=== PATIENT | male | born 1940 | race Caucasian/White ===

== ENCOUNTER 2016-09-10 18:13 | Inpatient (IN) | payer OTHER ==
[2016-09-10] MEDS ORDERED: NS 1,000 ML IV ONE (18:17)
[2016-09-10] MEDS ORDERED: ONDANSETRON 4 MG/2 ML VIAL IVP ONE (18:18)
[2016-09-10] MEDS ORDERED: ONDANSETRON 4 MG/2 ML VIAL ONE (18:18)
--- NOTE | 2016-09-10 18:22 | EDPHY ---
H & P HPI/ROS: HPI CHIEF COMPLAINT: Chest pain, ST elevation ND by EMS HISTORY OF PRESENT ILLNESS: this patient is 75-year-old male, presents emergency room as a STEMI activation in the field by EMS. He presents emergency room with chest pressure, and he has an obvious ST elevation ND on his EKG with acute ST elevation to 3 AVF with reciprocal changes in V1, V2, aVL. this patient tells me that he was doing cardio at the gym a pretty aggressive aerobic exercise class and developed chest pain. describes a dull ache across his precordium. It is currently 7/10. In route by EMS he was given 100 mcg IV fentanyl, 3 doses of nitroglycerin however this did not relieve his pain. Upon arrival here to the emergency room is hemodynamically stable no acute distress complaining of 7/10 chest pressure. Pre-hospital EKG shows an inferior ST elevation ND, EKG in the emergency room indicates a ST elevation ND 1814: the cardiac alert was paged out prior to arrival, catheterization lab is activated, Cardiology is in route for ST elevation ND. Past Medical History: coronary artery disease with 1 stent Past Surgical History: PTCA with 1 stent he believes to his LAD Social History: denies daily use drugs alcohol tobacco products Family History: noncontributory ROS REVIEW OF SYSTEMS: A comprehensive 10 point review of systems is otherwise negative aside from elements mentioned in the history of present illness. Exam Constitutional no acute distress, hemodynamically stable, triage nursing summary reviewed, vital signs reviewed, awake/alert. Eyes normal conjunctivae and sclera, EOMI, PERRLA. HENT normal inspection, atraumatic, moist mucus membranes, no epistaxis, neck supple/ no meningismus, no raccoon eyes. Respiratory clear to auscultation bilaterally, normal breath sounds, no respiratory distress, no wheezing. Cardiovascular rate normal, regular rhythm, no murmur, no edema, distal pulses normal. Gastrointestinal soft, non-tender, no rebound, no guarding, normal bowel sounds, no distension, no pulsatile mass. Genitourinary no CVA tenderness. Musculoskeletal no midline vertebral tenderness, full range of motion, no calf swelling, no tenderness of extremities, no meningismus, good pulses, neurovascularly intact. Skin pink, warm, & dry, no rash, skin atraumatic. Neurologic awake, alert and oriented x 3, AAOx3, moves all 4 extremities equally, motor intact, sensory intact, CN II-XII intact, normal cerebellar, normal vision, normal speech. Psychiatric normal mood/affect. Heme/Lymph/Immune no lymphadenopathy. Differential Diagnosis: acute ND, acute coronary syndrome, ST-elevation ND, aortic dissection Medical Decision Making: this patient will be prepped for cardiac catheterization lab. His EKG does indicate an ST elevation ND. Patient had 2 large-bore IVs established, he be given IV morphine for pain control your he received full-dose aspirin, IV fentanyl, and 3 rounds of nitroglycerin EN route which made no improvement with his pain. Re-evaluation: EKG interpretation by me on record in Known system. Impression Time of EKG 18 18 this is sinus rhythm, this shows an obvious ST elevation ND with significant ST elevation inferior leads lead 2, 3, AVF, reciprocal changes with ST depression significantly in aVL, V1, V2. Critical Care: Total Critical Care Time Spent Managing this Patient: 40 Minutes. This time was spent Exclusively with this patient. This Care was exclusive of procedures. The Organ System/life at risk was cardiac This Patient was in Critical Condition because ST elevation ND ED x-ray chest one view: negative for acute cardiopulmonary disease. 1836: Dr. Bennett Harper at bedside evaluating the patient plan for cardiac catheterization. 1836: Re-evaluation at this time patient having ongoing chest pain, blood pressure stable, he is hemodynamically stable and agrees for plan to cardiac catheterization. INR pending for Coumadin. Source: Patient, EMS - Medical/Surgical History Hx Asthma: No Hx Chronic Respiratory Disease: No Hx Diabetes: No Hx Cardiac Disease: No Hx Renal Disease: No Hx Cirrhosis: No Hx Alcoholism: No Hx HIV/AIDS: No Hx Splenectomy or Spleen Trauma: No Other PMH: DENIES - Social History Smoking Status: Never smoked Constitutional: Initial Vital Signs O2 Sat (%) 98 09/10/16 18:13 O2 (L/minute) 2 Allergies/Adverse Reactions: No Known Allergies Allergy (Unverified 10/20/14 15:15) Home Medications: Medication Instructions Recorded Aspirin EC [Aspirin EC 81 mg (*)] 81 mg PO DAILY 09/10/16 Atorvastatin Calcium [Lipitor 40 40 mg PO DAILY 09/10/16 mg (*)] Brinzolamide/Brimonidine Tart 1 drop EACHEYE BID 09/10/16 [Simbrinza 1%-0.2% Eye Drops] Metoprolol Succinate Xr [Toprol Xl 12.5 mg PO DAILY 09/10/16 25 mg (*)] Warfarin Sodium [Coumadin 2.5MG 2.5 mg PO MWF 09/10/16 (*)] Warfarin Sodium [Coumadin 5MG (*)] 5 mg PO SUTUTHSA 09/10/16 Medical Decision Making - Data Points Laboratory Results: Laboratory Results 09/10/16 18:20 09/10/16 18:20 Medications Given: Discontinued Medications Sodium Chloride (Ns) 1,000 mls @ 0 mls/hr IV ONCE ONE PRN Reason: As Directed Stop: 09/10/16 18:18 Last Admin: 09/10/16 18:31 Dose: 1,000 mls Dextrose/Sodium Chloride (D5w 1/2 Ns) 1,000 mls @ 125 mls/hr IV CONT ANH Stop: 09/12/16 03:44 Last Admin: 09/10/16 21:13 Dose: 1,000 mls Morphine Sulfate (Morphine) 4 mg IVP EDNOW ONE Stop: 09/10/16 18:18 Last Admin: 09/10/16 18:30 Dose: 4 mg Morphine Sulfate (Morphine) 4 mg IVP Q1HR ONE Stop: 09/10/16 18:33 Last Admin: 09/10/16 18:33 Dose: 4 mg Nitroglycerin (Nitrostat) 0.4 mg SL EDNOW ONE Stop: 09/10/16 18:33 Last Admin: 09/10/16 18:33 Dose: 0.4 mg Ondansetron HCl (Zofran) 4 mg IVP EDNOW ONE Stop: 09/10/16 18:19 Last Admin: 09/10/16 18:31 Dose: 4 mg Prasugrel (Effient) 60 mg PO ONCE ONE Stop: 09/10/16 19:32 Last Admin: 09/10/16 21:36 Dose: Not Given Rosuvastatin Calcium (Crestor) 40 mg PO DAILY ANH Stop: 03/09/17 19:59 Last Admin: 09/10/16 21:40 Dose: 40 mg Departure - Departure Disposition: To OP Cath/Surgery Clinical Impression: ST elevation (STEMI) myocardial infarction Qualifiers: Involved coronary artery: unspecified coronary artery Qualifier Code: (I21.3) ST elevation (STEMI) myocardial infarction of unspecified site Condition: Critical
[2016-09-10] MEDS ORDERED: NITROGLYCERIN 0.4 MG BTL SL ONE ×2 (18:24→18:32)
[2016-09-10 18:29] LABS: % IMMATURE GRANULYOCYTES 0.3 % (0.0-1.1); ABSOLUTE IMMATURE GRANULOCYTES 0.03 10^3/uL (0.00-0.10); ADD DIFF? NO; ADD MORPH? NO; ADD SCAN? NO; ATYPICAL LYMPHOCYTE FLAG 30 (0-99); FRAGMENT RBC FLAG 0 (0-99); HEMOGLOBIN 15.9 g/dL (13.7-17.5); LEFT SHIFT FLG 0 (0-99); LIPEMIA HEMOLYSIS FLAG 90 (0-99); MEAN CELL HEMOGLOBIN 31.9 pg (27.9-34.1); MEAN CELL HEMOGLOBIN CONCENTR. 34.6 g/dL (32.4-36.7); MEAN CELL VOLUME 92.2 fL (81.5-99.8); MEAN PLATELET VOLUME 10.2 fL (8.7-11.7); PLATELET CLUMPS FLAG 0 (0-99); PLATELET COUNT 225 10^3/uL (150-400); RED BLOOD CELL COUNT 4.99 10^6/uL (4.40-6.38); RED CELL DISTRIBUTION WIDTH 13.2 % (11.5-15.2)
--- NOTE | 2016-09-10 18:29 | CPEKG ---
Heart Rate: 110 RR Interval: 545 P-R Interval: 116 QRSD Interval: 116 QT Interval: 416 QTC Interval: 564 P [place]: 55 QRS [place]: -41 T Wave [place]: 105 EKG Severity - ABNORMAL ECG - EKG Impression: SINUS TACHYCARDIA EKG Impression: RUN OF VENTRICULAR PREMATURE COMPLEXES EKG Impression: ABERRANT COMPLEX, POSSIBLY SUPRAVENTRICULAR EKG Impression: PROBABLE LEFT ATRIAL ABNORMALITY EKG Impression: NONSPECIFIC IVCD WITH LAD EKG Impression: ST ELEVATION, PROBABLE INFERIOR INJURY Electronically Signed By: Devonte Farrell 10-Sep-2016 20:16:23
[2016-09-10] MEDS ORDERED: HEPARIN 10,000 UNIT/10 ML MDV ONE (18:33)
[2016-09-10] MEDS ORDERED: LIDOCAINE 1% 30 ML SDV ONE (18:33)
[2016-09-10] MEDS ORDERED: fentaNYL 100 MCG/2 ML INJ ONE (18:33)
[2016-09-10] MEDS ORDERED: VERAPAMIL 5 MG/2 ML VIAL ONE (18:33)
[2016-09-10] MEDS ORDERED: MIDAZOLAM 2 MG/2 ML VIAL ONE (18:33)
--- NOTE | 2016-09-10 18:33 | DX ---
Portal AP Upright Chest, 6:22 p.m. Clinical History: 75-year-old male with chest pain and shortness of breath. Comparison Study: Chest, dated 10/20/14. Findings: Telemetry monitoring lead lines and oxygen tubing are present. The cardiac silhouette size is at the upper limits of normal (given the portable AP technique). There is no focal infiltrate, ple ural effusion, peripheral interstitial edema, or pneumothorax. There is some mild osseous hypertrophy at the first costochondral junctions. There some degenerative features of the spine. Impression: No acute abnormality.
[2016-09-10] MEDS ORDERED: IOPAMIDOL (ISOVUE 370) 100 ML BTL IV ONE ×2 (18:34→19:05)
[2016-09-10] MEDS ORDERED: ATROPINE SULFATE 1 MG/10 ML SYR ONE (18:42)
[2016-09-10 18:44] LABS: APTT 30.7 SEC (23.0-38.0); INR 2.22 (0.83-1.16); PROTIME(PATIENT) 24.8 SEC (12.0-15.0)
[2016-09-10] MEDS ORDERED: EPINEPHrine 1 MG/10 ML SYR IVP ONE (18:44)
[2016-09-10 18:50] LABS: ALANINE AMINOTRANSFERASE 70 IU/L (21-72); ALBUMIN 4.2 g/dL (3.5-5.0); ALKALINE PHOSPHATASE 108 IU/L (38-126); ANION GAP 17 mEq/L (8-16); ASPARTATE AMINOTRANSFERASE 76 IU/L (17-59); BILIRUBIN,TOTAL 1.4 mg/dL (0.1-1.4); BILIRUBIN-CONJUGATED 0.4 mg/dL (0.0-0.5); CARBON DIOXIDE 16 mEq/l (22-31); CHLORIDE 107 mEq/L (97-110); CREATININE 1.3 mg/dL (0.7-1.3); GLOMERULAR FILTRATION RATE 54; GLUCOSE 135 mg/dL (70-100); SODIUM 140 mEq/L (134-144); SPECIMEN HEMOLYSIS 122; TOTAL PROTEIN 7.6 g/dL (6.3-8.2)
[2016-09-10] MEDS ORDERED: PRASUGREL HCL 10 MG TAB ONE (18:55)
[2016-09-10 19:02] LABS: CK-MB INTERPRETATION NEGATIVE (NEGATIVE); CREATINE KINASE-MB FRACTION 2.81 ng/mL (0-3.19); TROPONIN I 0.013 ng/mL (0-0.034)
[2016-09-10] MEDS ORDERED: NITROGLYCERIN 1,500 MCG/15 ML VIAL MISC ONE (19:14)
[2016-09-10] MEDS ORDERED: ONDANSETRON 4 MG/2 ML VIAL IVP PRN (19:31)
[2016-09-10] MEDS ORDERED: HYDROCODONE/APAP 5/325 TAB PO PRN (19:31)
[2016-09-10] MEDS ORDERED: OXYCODONE/APAP 5/325 TAB PO PRN (19:31)
[2016-09-10] MEDS ORDERED: NITROGLYCERIN 0.4 MG BTL SL PRN (19:31)
[2016-09-10] MEDS ORDERED: TEMAZEPAM 15 MG CAP PO PRN (19:31)
[2016-09-10] MEDS ORDERED: ATROPINE SULFATE 1 MG/10 ML SYR IVP PRN (19:31)
[2016-09-10] MEDS ORDERED: LORazepam 2 MG/ML INJ IVP PRN (19:31)
[2016-09-10] MEDS ORDERED: PRASUGREL HCL 10 MG TAB PO ONE (19:31)
[2016-09-10] MEDS ORDERED: D5W 1/2 NS 1,000 ML IV SCH (19:45)
[2016-09-10] MEDS ORDERED: ROSUVASTATIN CALCIUM 40 MG TAB PO SCH (20:00)
--- NOTE | 2016-09-10 20:28 | GHP ---
[f rep st] HISTORY AND PHYSICAL DATE OF ADMISSION: 09/10/2016 Referring Physician: Kade Dobson MD INDICATION: Acute inferior wall myocardial infarction, ST-segment elevation. HISTORY OF PRESENT ILLNESS: The patient is 75 years old. No old records are available. He states h e had a myocardial infarction and was treated at [facility] in August of 2015. He bel ieves it was to the front wall artery of his heart. He received what he believes was a drug-eluting stent. He was on dual anti-platelet therapy until the middle of August when this was discontinued. He has remained on aspirin 81 mg as well as warfarin which he takes for a long history of paroxysma l atrial fibrillation. He has been feeling well and was performing high-level step aerobics class this evening when he had s udden onset of substernal chest pain. 911 was called, and he was brought to the emergency department where he had inferior wall ST-segment elevation with evidence for posterior extension. Cardiac aler t was called. The patient was given fentanyl and nitroglycerin without reduction in his severe subst ernal chest pain. CARDIAC RISK FACTORS: Positive for family history in his father in his 70s. He has siblings without known coronary disease. There is no history of cigarette smoking, diabetes, or hypertension. He do es not believe that he ever had hyperlipidemia but has been on statin therapy since his myocardial in [facility]. PAST MEDICAL AND PAST SURGICAL HISTORIES: Otherwise completely unremarkable. There is a history of atrial fibrillation for approximately 15 years. Patient does not believe he has this very often and cannot remember the last time he had atrial fibrillation. CURRENT MEDICATIONS: Aspirin, low strength; warfarin, unknown dose; Lipitor, unknown dose; metoprolo l, unknown dose. ALLERGIES: None known. 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 He has a daughter and son who live locally. Alcohol and drug use are denied. REVIEW OF SYSTEMS: Otherwise completely unremarkable except for shortness of breath associated with the chest discomfort. There has been no lightheadedness, palpitations, dizziness, syncope, or near-s yncope. No fever chills, headache, cough. PHYSICAL EXAM: GENERAL: The patient is in mild distress, complaining of 7/10 substernal chest pain. VITAL SIGNS: Blood pressure of 100/70, pulse of 85 and regular. NECK: Jugular venous pressure do es not appear elevated. LUNGS: Clear. CARDIAC: No murmur, rub, or gallop. ABDOMEN: Without mass es, tenderness, or bruits. EXTREMITIES: Femoral distal and radial pulses are normal with a normal A llen test. LABORATORY STUDIES: Show a normal CBC. PT/INR of 2.2. A CPK-MB that is negative. A troponin that is negative. A creatinine that is 1.3. DIAGNOSTIC STUDIES: Chest x-ray is unremarkable. EKG shows sinus rhythm at a rate of 55 beats per minute with marked inferior ST-segment elevation wit h ST depression in leads 1, aVL, V1 and V2, and V6. This is consistent with inferior posterior wall injury. IMPRESSION: 1. Acute inferior posterior wall [id number] myocardial infarction. 2. Previous stent in the left anterior descending for what appears to have been an anterior myocardi al infarction by patient history. This was approximately 13 months ago with recent discontinuation o f dual anti-platelet therapy. 3. History of paroxysmal atrial fibrillation, on warfarin. 4. Probable hyperlipidemia, on Lipitor, dose unknown. 5. Family history of coronary disease. PLAN: Emergent cardiac catheterization. Informed consent was obtained. This will be performed via the radial approach given elevated INR and warfarin usage. /[id number]/MODL
--- NOTE | 2016-09-10 20:48 | CPIP ---
[f rep st] INVASIVE CARDIAC PROCEDURE DATE OF PROCEDURE: 09/10/2016 INDICATIONS: 75-year-old man with acute inferior-posterior wall myocardial infarction. PROCEDURES PERFORMED: 1. Left heart catheterization with left ventricular and selective coronary angiography via the right radial approach. 2. Balloon angioplasty and intracoronary stent placement x2 in proximal and mid dominant right coron lyly artery. DESCRIPTION: Informed consent was obtained. Risks, benefits and alternatives were discussed in deta il with the patient in the emergency department. He is on warfarin for history of paroxysmal atrial fibrillation with an INR greater than 2. Decision was made to use radial approach. John test was n ormal. After informed consent was obtained, patient was brought emergently to the cardiac catheteriz ation laboratory, where the right wrist was sterilely prepped and draped. 2% lidocaine utilized for local anesthetic. 6-Portuguese Slender sheath placed, right radial artery, utilizing micropuncture techn ique. Intraarterial verapamil was administered. Intravenous heparin was administered. All catheter s were exchanged over an exchange J wire. A J Glidewire was required to traverse the tortuous brachi ocephalic. Diagnostic coronary angiography was performed with 6-Portuguese Herson right 4 and Herson l eft 3.5 catheters. At the end of the procedure, a 6-Portuguese pigtail was utilized for left heart darin terization and left ventricular angiography. The obvious culprit lesion was proximal to mid total occlusion of the dominant right coronary. Patie nt received Effient 60 mg orally at the beginning of the procedure. Heparin had already been adminis tered, and the ACT was greater than 400 seconds. A 6-Portuguese AL1 short-tipped guide catheter was plac ed. Prowater J wire was placed into the right coronary. Balloon backup support with a 3.25 x 15 mm Emerge balloon was required to cross the heavily calcified lesion. Wire was placed out distally. Ba lloon inflations were performed up to 11 atmospheres, restoring normal antegrade flow. Patient did h ave significant junctional bradycardia and hypotension, requiring atropine and fluid. This led to re stored normal antegrade flow and reduction in ST-segment elevation. A 3.5 x 38 mm Synergy stent was then chosen to cover the mid stenosis and carefully positioned and deployed to 18 atmospheres. There was excellent result in the stented segment. There was still an eccentric proximal lesion near the ostium, leading to catheter damping. A 4.0 x 16 mm Synergy stent was carefully positioned in this ar ea and deployed to 16 atmospheres. Intracoronary nitroglycerin and verapamil were administered, and final orthogonal angiography was performed. Pigtail catheter was then placed for left ventricular an giogram and left heart catheterization. Catheter was removed over a wire. Sheath was removed, and T R Band was placed. FINDINGS: HEMODYNAMICS: Aortic pressure at the beginning of the case, 94/56; venous, 72. Left ventricular pre ssure 85/26, end-diastolic. There was minimal pullback gradient across the aortic valve. CORONARY ANGIOGRAPHY: The right coronary artery is a large, dominant vessel with a moderately large posterior descending and a large posterolateral branch. The vessel is heavily calcified. There is a proximal eccentric 60% to 70% stenosis, followed by proximal to mid total occlusion. Following prox imal and mid stenting, there is restored normal antegrade flow, no residual stenoses within the stent . There is evidence of ostial stenosis of the PDA of at least 70% and then distal right coronary meeta nosis beyond the PDA origin of 60%. This did not respond to intracoronary vasodilators. Left Main: A moderate-sized, bifurcating vessel with mild plaquing. Left Anterior Descending: A moderately large vessel continuing to the apex. There is the appearance of a proximal stent that is widely patent. The vessel is moderately to heavily calcified. There is a small first diagonal branch, a small to moderate second diagonal branch, and a moderate bifurcatin g third diagonal branch. The mid LAD after the third diagonal branch has an area of significant syst olic compression and at least 50% to 60% stenosis. There are, otherwise, luminal irregularities in t he LAD and its branches. Circumflex: Nondominant vessel with a small high lateral branch, moderately large first marginal bra nch, moderate bifurcating second marginal branch, and luminal irregularities with no significant sten oses. LV Ventricle: Normal in size and shape. The left ventricle has focal posterior, inferior and basal hypokinesis which is moderate to severe, with the remainder of the ventricle being normal to hyperdyn amic with an ejection fraction of greater than 60%. There are no filling defects or significant mitr al regurgitation. OVERALL IMPRESSION: 1. Acute inferior-posterior wall myocardial infarction due to proximal and mid occlusion of dominant right coronary, successfully treated with 2 drug-eluting stents with excellent result. 2. Patent LAD stent. 3. Residual PDA and distal right coronary moderate to severe disease that is not critical. 4. Moderate mid LAD disease. 5. Posterior-inferior hypokinesis with normal ejection fraction. 6. Systemic hypotension. 7. Reperfusion arrhythmias, which have resolved. PLAN: 1. ICU admission. 2. Dual antiplatelet therapy. 3. Hold warfarin for the time being in an attempt to obtain old records regarding history of atrial fibrillation. 4. High-dose statin therapy. 5. Will resume beta-nadia when tolerated from a blood pressure standpoint. Copy requested to: Dr. Crook /[id number]/MODL
--- NOTE | 2016-09-10 20:49 | CPEKG ---
Heart Rate: 72 RR Interval: 833 P-R Interval: 196 QRSD Interval: 98 QT Interval: 420 QTC Interval: 460 P [place]: 54 QRS [place]: -58 T Wave [place]: 12 EKG Severity - ABNORMAL ECG - EKG Impression: SINUS RHYTHM EKG Impression: LEFT ANTERIOR FASCICULAR BLOCK EKG Impression: BORDERLINE R WAVE PROGRESSION, ANTERIOR LEADS EKG Impression: BORDERLINE T WAVE ABNORMALITIES Electronically Signed By: Hans Russo 10-Sep-2016 21:17:16
[2016-09-10] MEDS: FAMOTIDINE 20 MG TAB PO SCH (21:40)
[2016-09-10] MEDS: METOPROLOL TARTRATE 25 MG TAB PO SCH (21:40)
[2016-09-10 21:52] LABS: CK-MB INTERPRETATION NEGATIVE (NEGATIVE); TROPONIN I 0.955 ng/mL (0-0.034)
[2016-09-10 21:54] LABS: CREATINE KINASE-MB FRACTION 7.13 ng/mL (0-3.19)
[2016-09-11 05:21] LABS: % IMMATURE GRANULYOCYTES 0.5 % (0.0-1.1); ABSOLUTE IMMATURE GRANULOCYTES 0.03 10^3/uL (0.00-0.10); ADD DIFF? NO; ADD MORPH? NO; ADD SCAN? NO; ATYPICAL LYMPHOCYTE FLAG 20 (0-99); FRAGMENT RBC FLAG 0 (0-99); HEMATOCRIT 39.2 % (40.0-51.0); HEMOGLOBIN 13.3 g/dL (13.7-17.5); LEFT SHIFT FLG 0 (0-99); LIPEMIA HEMOLYSIS FLAG 90 (0-99); MEAN CELL HEMOGLOBIN 32.4 pg (27.9-34.1); MEAN CELL HEMOGLOBIN CONCENTR. 33.9 g/dL (32.4-36.7); MEAN CELL VOLUME 95.6 fL (81.5-99.8); MEAN PLATELET VOLUME 10.7 fL (8.7-11.7); PLATELET CLUMPS FLAG 10 (0-99); PLATELET COUNT 172 10^3/uL (150-400); RED CELL DISTRIBUTION WIDTH 13.4 % (11.5-15.2)
[2016-09-11 05:36] LABS: INR 2.46 (0.83-1.16); PROTIME(PATIENT) 26.9 SEC (12.0-15.0)
[2016-09-11 05:37] LABS: ALANINE AMINOTRANSFERASE 60 IU/L (21-72); ALBUMIN 2.7 g/dL (3.5-5.0); ALKALINE PHOSPHATASE 64 IU/L (38-126); ANION GAP 8 mEq/L (8-16); ASPARTATE AMINOTRANSFERASE 60 IU/L (17-59); BILIRUBIN,TOTAL 0.8 mg/dL (0.1-1.4); CALCIUM 7.7 mg/dL (8.5-10.4); CARBON DIOXIDE 20 mEq/l (22-31); CHLORIDE 111 mEq/L (97-110); CHOLESTEROL 88 mg/dL (140-220); CHOLESTEROL/HDL RATIO 1.69 RATIO (1.00-4.97); CREATININE 1.1 mg/dL (0.7-1.3); GLOMERULAR FILTRATION RATE > 60; GLUCOSE 98 mg/dL (70-100); HIGH DENSITY LIPOPROTEIN 52 mg/dL (40-65); LACTATE DEHYDROGENASE 591 IU/L (313-618); LDL/HDL RATIO 0.44 RATIO (1.00-3.64); LOW DENSITY LIPOPROTEIN 23 mg/dL (80-100); MAGNESIUM 2.1 mg/dL (1.6-2.3); NON-HIGH DENSITY LIPOPROTEIN 36 mg/dL (90-129); SODIUM 139 mEq/L (134-144); TOTAL PROTEIN 5.4 g/dL (6.3-8.2); TRIGLYCERIDE 66 mg/dL (40-150); VERY LOW DENSITY LIPOPROTEINS 13 mg/dL (8-25)
[2016-09-11 05:55] LABS: CK-MB INTERPRETATION POSITIVE (NEGATIVE)
[2016-09-11] MEDS: METOPROLOL TARTRATE 25 MG TAB PO SCH ×2 (08:28→21:07)
[2016-09-11] MEDS: PRASUGREL HCL 10 MG TAB PO SCH (08:38)
[2016-09-11] MEDS: ASPIRIN EC 325 MG TAB PO SCH (08:38)
[2016-09-11] MEDS: FAMOTIDINE 20 MG TAB PO SCH ×2 (08:38→21:07)
--- NOTE | 2016-09-11 09:02 | CPEKG ---
Heart Rate: 54 RR Interval: 1111 P-R Interval: 192 QRSD Interval: 116 QT Interval: 444 QTC Interval: 421 P [place]: 50 QRS [place]: -52 T Wave [place]: -55 EKG Severity - ABNORMAL ECG - EKG Impression: SINUS RHYTHM EKG Impression: LEFT ANTERIOR FASCICULAR BLOCK Electronically Signed By: Hans Russo 11-Sep-2016 09:11:07
[2016-09-11 12:46] LABS: CK-MB INTERPRETATION NEGATIVE (NEGATIVE)
[2016-09-11 15:34] VITALS: TEMP 98.4
--- NOTE | 2016-09-11 16:12 | SOAPPROG ---
[facility] Progress Note Assessment/Plan: Assessment: 1. Status post inferior wall myocardial infarction treated with 2 drug-eluting stents to the dominant right coronary with excellent result. Relatively low CPK and troponin peak. No recurrent chest discomfort or shortness of breath. No significant arrhythmias although sinus bradycardia and sinus arrhythmia have been present. Mild asymptomatic hypotension with some orthostatic component. Echocardiography with normal left ventricular and right ventricular function and no significant valvular abnormalities. 2. History of previous anterior wall myocardial infarction with LAD stent August 2015. Stent widely patent. No significant segmental wall motion abnormality in the anterior wall by either echocardiogram or left ventricular angiogram. 3. Past paroxysmal atrial fibrillation controlled with propafenone discontinue August 2015. Patient had been on warfarin since then. Warfarin currently on hold. Patient in sinus rhythm. I have placed a call to the patient's primary brickmason helper Dr. Garcia. She has yet to call me back. Patient may do better on dual anti-platelet therapy and implantable loop recorder. 4. Cardiac risk factors: No history of hypertension, diabetes or cigarette smoking. Family history only at older age in father. No history of hyperlipidemia. Current LDL cholesterol less than 30 on moderate dose statin. Patient has been placed on Crestor in this hospital stay. Will obtain an advanced lipid testing and C reactive protein. Overall patient is doing very well with no complaints. No recurrent chest discomfort. Walking without any symptoms or concerns. Right radial access site healing well without complication. Excellent hand perfusion. Plan: 1. PCU status 2. Advanced serum lipid testing 3. Consider implantable loop recorder and holding anticoagulation 4. Plavix generic testing is pending. Patient will remain on aspirin 81 mg and Effient 10 mg daily until results of Plavix genetic testing 5. Likely discharge in the morning. 09/11/16 16:12 09/11/16 16:12 Objective: Vital Signs Temp Pulse Resp BP Pulse Ox 98.4 F 64 17 97/59 L 97 09/11/16 15:31 09/11/16 15:31 09/11/16 15:31 09/11/16 15:31 09/11/16 15:31 Laboratory Results 09/11/16 05:05 09/11/16 05:05 09/10/16 09/11/16 09/12/16 05:59 05:59 05:59 Intake Total 2000 300 Output Total 650 800 Balance 1350 -500 PT 26.9 SEC (12.0-15.0) H 09/11/16 05:05 INR 2.46 (0.83-1.16) H 09/11/16 05:05 ICD10 Worksheet Patient Problems: Problems Problem Status Diagnosed Chronic Disease [facility]/Transitional Care Acute ST elevation (STEMI) myocardial infarction Acute
[2016-09-11] MEDS ORDERED: ROSUVASTATIN CALCIUM 40 MG TAB PO SCH (21:00)
[2016-09-12] MEDS: Brinzolamide/Brimonidine Tart [Simbrinza 1%-0.2% Eye Drops] 1 DROP EACHEYE SCH ×2 (01:31→10:03)
[2016-09-12 06:51] LABS: % IMMATURE GRANULYOCYTES 0.3 % (0.0-1.1); ABSOLUTE IMMATURE GRANULOCYTES 0.02 10^3/uL (0.00-0.10); ADD DIFF? NO; ADD MORPH? NO; ADD SCAN? NO; ATYPICAL LYMPHOCYTE FLAG 20 (0-99); FRAGMENT RBC FLAG 0 (0-99); HEMATOCRIT 42.2 % (40.0-51.0); HEMOGLOBIN 14.6 g/dL (13.7-17.5); LEFT SHIFT FLG 0 (0-99); LIPEMIA HEMOLYSIS FLAG 90 (0-99); MEAN CELL HEMOGLOBIN 32.6 pg (27.9-34.1); MEAN CELL HEMOGLOBIN CONCENTR. 34.6 g/dL (32.4-36.7); MEAN CELL VOLUME 94.2 fL (81.5-99.8); MEAN PLATELET VOLUME 10.2 fL (8.7-11.7); PLATELET CLUMPS FLAG 0 (0-99); PLATELET COUNT 178 10^3/uL (150-400); RED BLOOD CELL COUNT 4.48 10^6/uL (4.40-6.38); RED CELL DISTRIBUTION WIDTH 13.2 % (11.5-15.2)
[2016-09-12 07:05] LABS: ALANINE AMINOTRANSFERASE 70 IU/L (21-72); ALBUMIN 3.2 g/dL (3.5-5.0); ALKALINE PHOSPHATASE 80 IU/L (38-126); ANION GAP 7 mEq/L (8-16); ASPARTATE AMINOTRANSFERASE 53 IU/L (17-59); BILIRUBIN,TOTAL 1.4 mg/dL (0.1-1.4); CALCIUM 8.5 mg/dL (8.5-10.4); CARBON DIOXIDE 22 mEq/l (22-31); CHLORIDE 112 mEq/L (97-110); GLOMERULAR FILTRATION RATE > 60; GLUCOSE 82 mg/dL (70-100); POTASSIUM 4.2 mEq/L (3.5-5.2); SODIUM 141 mEq/L (134-144)
[2016-09-12 07:08] LABS: HIGHLY SENSITIVE CRP 3.1 mg/L
[2016-09-12 07:27] LABS: INR 1.76 (0.83-1.16); PROTIME(PATIENT) 20.6 SEC (12.0-15.0)
--- NOTE | 2016-09-12 08:44 | CPEKG ---
Heart Rate: 71 RR Interval: 845 P-R Interval: 184 QRSD Interval: 106 QT Interval: 456 QTC Interval: 496 P [place]: 62 QRS [place]: -66 T Wave [place]: -69 EKG Severity - ABNORMAL ECG - EKG Impression: SINUS RHYTHM EKG Impression: LEFT ANTERIOR FASCICULAR BLOCK EKG Impression: ABNORMAL T, CONSIDER ISCHEMIA, INFEROLATERAL LEADS Electronically Signed By: Hans Russo 12-Sep-2016 09:11:23
[2016-09-12] MEDS: METOPROLOL TARTRATE 25 MG TAB PO SCH (09:51)
[2016-09-12] MEDS: FAMOTIDINE 20 MG TAB PO SCH ×2 (09:52→10:01)
[2016-09-12] MEDS: PRASUGREL HCL 10 MG TAB PO SCH (09:52)
[2016-09-12] MEDS: ASPIRIN EC 325 MG TAB PO SCH (09:52)
[2016-09-12 11:07] VITALS: BP 110/64; PULSE 65; RESP 18; O2SAT 97
[2016-09-12] MEDS ORDERED: FLU VACC TS 2016-17(65YR+)/PF 0.5 ML SYR (FLUZONE HIGH DOSE) IM ONE (11:07)
--- NOTE | 2016-09-12 19:34 | GDS ---
[f rep st] DISCHARGE SUMMARY DISCHARGE DIAGNOSES: 1. Acute inferior wall ST-segment elevation myocardial infarction. 2. 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 3. Coronary artery disease. 4. Past history of paroxysmal atrial fibrillation. 5. No history of hyperlipidemia, although patient has been maintained on chronic statin therapy foll owing his myocardial infarction. 6. No other known cardiac risk factors. PROCEDURES: 1. Left heart catheterization with left ventricular and selective coronary angiography via the right radial approach. 2. Balloon angioplasty and intracoronary stent placement x2 in the proximal and mid dominant right c oronary artery. 3. Echocardiography. HOSPITAL COURSE: This 75-year-old man had previous anterior wall myocardial infarction (no records a vailable) in August of 2015, treated with LAD stenting at [facility]. He had past his tory of paroxysmal atrial fibrillation, controlled with propafenone. At that time, he had propafenon e discontinued and was maintained on warfarin, as well as dual-antiplatelet therapy with aspirin and Plavix. Plavix was discontinued in mid August of 2016, 1 year post stenting. Patient has done ext remely well. Although he did not have history of hyperlipidemia, he was on appropriate dose statin t herapy. He had remained physically active and was told that by his report did not have coronary dise ase in other vessels. On the night of admission, he was working out at the health club doing aerobic s and had sudden onset of substernal chest pain and shortness of breath. was called and he was brought to the emergency department, where he had ST-segment elevation with inferior posterior wall myocardial infarction. He was brought emergently to cardiac catheterization. Please see separate re port. 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 The LAD stent was widely patent. There was mild diffuse disease in other ves sels, especially the mid to distal LAD with a 50% stenosis proximally at the site of a myocardial paola dge. Patient received angioplasty with restored antegrade flow and only mild reperfusion bradyarrhyt hmias. This was followed by placement of 2 drug-eluting stents, a 3.5 mm x 38 mm Synergy stent in th e midvessel and a 4.0 x 16 mm Synergy stent in the proximal vessel. He had fairly focal inferior pos terior hypokinesis with normal ejection fraction. He recovered well with some mild hypotension and b radycardia. He was observed on telemetry until the time of discharge. CPK peaked at 378 with approximately 5% MB. Troponin peaked at 7.4. At admission, his total cholest cathi was 88 with an LDL of 23, an HDL of 52, and triglycerides of 66. Patient was placed on Effient 10 mg daily after a 60 mg loading dose. Plavix [id number] genetic testing was sent and was pending at the time of discharge. Patient had no significant arrhythmias. He had been on low-dose metoprolol, which was continued once his hypotension resolved. Patient had no compl aints, his wrist/radial access site healed without difficulty, and he had a palpable pulse at the lalito e of discharge. He did not have any atrial fibrillation. I discussed various options regarding management of his ant icoagulation and potential bouts of paroxysmal atrial fibrillation. Patient's JOEL-Vasc score is 2 f or coronary disease and age. Therefore, ideal treatment would be anticoagulation. This increases hi s risk of bleeding in the setting of recent stenting and dual-antiplatelet therapy. He believes he h as had rare bouts of atrial fibrillation, none recently. However, he could obviously be having asymp tomatic episodes of atrial fibrillation since he is no longer on antiarrhythmic therapy. Other optio ns discussed with the patient included implantable loop recorder with home monitoring to assess for a trial fibrillation burden, use of novel oral anticoagulant agent. (This was discussed at length as p blank is very unhappy with warfarin. I believe patient would be an excellent candidate for Pradaxa given the availability of FDA reversal agent). Patient did want me to discuss this with his primary vascular surgery physician, Dr. Geni Enriquez. I tried her office on at least 5 different occasions and was vito d on each occasion, except the last, that she would call me back immediately. However, I never did h ear a call back and on the last phone call, I was surprisingly told by the person answering the phone "she is not on-call and therefore, not obligated to speak with me." Therefore, the decision has bee n made to continue dual-antiplatelet therapy with aspirin and Effient. I did offer to place an impla ntable loop recorder prior to discharge. Patient was anxious to be discharged and would like to disc uss this as an outpatient with his primary vascular surgery physician. I did tell him that currently his medical t herapy would be considered less than optimal for atrial fibrillation. Ideally, we would either have a better understanding of his atrial fibrillation burden with implantable loop recorder and/or he wou ld be on anticoagulation therapy with either warfarin or Pradaxa. If he does have a burden of atrial fibrillation, then further antiarrhythmic drug therapy could be considered, possibly with sotalol or dofetilide. STUDIES PENDING AT DISCHARGE: An advanced lipoprotein profile was pending, as well as [id number] phenot ype genetic testing. FOLLOWUP PLANS: I have asked the patient to follow in my office once next week in order to follow up on the results of his pending testing. He will then be following with his primary vascular surgery physician. It is unclear why this patient without traditional risk factors and excellent lipids had once again, wh at is likely plaque rupture with thrombus. Advanced lipid testing, as mentioned, is pending includin g lipoprotein A. Further evaluation may be beneficial in the future. For the time being, I recommen d dual-antiplatelet therapy for at least 1 year, possibly lifelong. Effient can likely be changed to clopidogrel pending results of [id number] phenotype. Copy requested to: Dr. Carol Hill [facility] /[id number]/MODL
[2016-09-13 12:44] LABS: APOLIPOPROTEIN B 41 mg/dL (()); BETA VLD CHOLESTEROL Not Detected mg/dL (<15); BETA VLD TRIGLYCERIDE Not Detected mg/dL (<15); CHOLESTEROL, TOTAL 100 mg/dL (()); CHYLOMICRONS CHOLESTEROL Not Detected (()); CHYLOMICRONS TRIGLYCERIDE Not Detected (()); HDL CHOLESTEROL 48 mg/dL (>=40); LDL CHOLESTEROL 41 mg/dL (()); LDL TRIGLYCERIDES 22 mg/dL (<=50); Lp(a) CHOLESTEROL <3 mg/dL (<3); LpX Not detected (()); TRIGLYCERIDES 73 mg/dL (()); VLDL CHOLESTEROL 11 mg/dL (<30); VLDL TRIGLYCERIDE 40 mg/dL (<120)
[2016-09-13 15:30] LABS: 2C19S INTERPRETATION See Comments (())
== END 2016-09-12 13:23 | disposition home or self-care (01) | DRG 247 ==
LOC: EDUNIT# → F2N 19:46
PROVIDERS: ADMIT Internal Medicine Interventional Cardiology; ATTEND Internal Medicine Interventional Cardiology
PROC: B2111ZZ Fluoroscopy of Multiple Coronary Arteries using Low Osmolar Contrast (ICD-10-PCS; principal; 2016-09-10)
PROC: 4A023N7 Measurement of Cardiac Sampling and Pressure, Left Heart, Percutaneous Approach (ICD-10-PCS; principal; 2016-09-10)
PROC: B2151ZZ Fluoroscopy of Left Heart using Low Osmolar Contrast (ICD-10-PCS; principal; 2016-09-10)
PROC: 027035Z Dilation of Coronary Artery, One Artery with Two Drug-eluting Intraluminal Devices, Percutaneous Approach (ICD-10-PCS; principal; 2016-09-10)
DX: I21.19 ST elevation (STEMI) myocardial infarction involving other coronary artery of inferior wall (principal); I25.10 Atherosclerotic heart disease of native coronary artery without angina pectoris; I25.2 Old myocardial infarction; I48.0 Paroxysmal atrial fibrillation; Z95.5 Presence of coronary angioplasty implant and graft; Z79.82 Long term (current) use of aspirin; Z79.01 Long term (current) use of anticoagulants
CPT/HCPCS: 81225-90; 82172-90; 82947-QW; 86141-90; 96374; C1725; C1769; C1874; C1887; C9606; G0008; J0461; J1644; J2250; J2405; J3010; Q9967